=== PATIENT | female | born 1950 | race Caucasian/White ===

== ENCOUNTER → 2016-11-24 | Outpatient (CLI) | payer BC ==
[~2016-11-24] MED LIST: ALBUTEROL17 G1 IH; ALLEGRA PO; DILTIAZEM ER60 MG PO; FLONASE16 GM; FLOVENT7.9 GM 44 INH; HYDROCHLOROTHIA25 MG PO; LIPITOR PO; LISINOPRIL PO; OMEPRAZOLE20 M2 PO; RHINOCORT AQUA8.6 GM
--- NOTE | ~2016-11-24 | HM ---
Unit #: [id number] #: [id number] Patient: ALEKSANDRA LEAL [id number] [address] [address] [id number] O MR#: [id number] NAME: ALEKSANDRA LEAL : 1950 SEX: F STUDY DATE/TIME: 11/24/2016 UNIT: [facility] [place]: STUDY DESCRIPTION: Holter Monitor Attending Physician: Swetha Rolle M.D. Referring Physician: Swetha Rolle M.D. Primary Care Physician: Swetha Rolle M.D. CARDIOLOGY REPORT EXAM Holter Monitor DATE APPLIED 11/24/2016 DATE SCANNED 12/03/2016 ORDERED BY Swetha Rolle M.D. READ BY Brady Rios M.D. INDICATION Palpitations. SUMMARY The patient was monitored for 24 hours. A total of 85,050 QRS complexes were analyzed. The average heart rate was 53 beats per minute. The minimum heart rate of 34 beats per minute occurred at approximately 5 a.m., maximum heart rate 81 beats per minute occurred at approximately 4:30 p.m. A review of the heart rate histogram showed a normal pattern of heart rates during the day. There were no pauses. Supraventricular Ectopy: 91 isolated beats with one 5-beat run 91 beats per minutes, at 2:15 a.m. Ventricular Ectopy: 12,481 isolated beats, with four runs totaling 12 beats, three beats each, between 75 and 106 beats per minute. Symptoms: Patient experienced palpitations several times. One occurred at work at approximately 2:15 p.m. There was ventricular bigeminy, PACs, and interpolated beats. IMPRESSION 1. Palpitations may be represented by the very frequent ventricular ectopy, or by the bradycardia. 2. No significant SVT or VT. Very short runs as noted above. 3. Consider further cardiac evaluation. Unit #: [id number] #: [id number] Patient: ALEKSANDRA LEAL Dictated by... Nathaly Stephenson/shahana TD: 12/03/2016 13:15 JOB #: [id number] CARDIOLOGY REPORT Page 1 of 1 X Brady Rios MD HOLTER MONITOR REPORT
== END | disposition home or self-care (01) ==
LOC: CEKG 15:50
DX: R00.2 Palpitations (principal)
CPT/HCPCS: 93225; 93226